=== PATIENT | male | born 1985 | race Caucasian/White ===

== ENCOUNTER 2021-12-10 19:15 | Emergency (ER) | payer OTHER ==
--- NOTE | 2021-12-10 20:45 | NUR ---
PATIENT WAS CALLED TO BE TRIAGED BUT WAS NOT PRESENT IN THE WAITING ROOM OR OUTSIDE OF ER.
--- NOTE | 2021-12-10 21:00 | NUR ---
PATIENT WAS CALLED TO BE TRIAGED BUT WAS NOT PRESENT IN THE WAITING ROOM OR OUTSIDE OF ER.
--- NOTE | 2021-12-10 21:30 | NUR ---
PATIENT WAS CALLED TO BE TRIAGED BUT WAS NOT PRESENT. PATIENT WAS NOT TRIAGED OR SEEN BY [facility].
== END 2021-12-10 21:30 | disposition left against medical advice (07) ==
LOC: ER 19:33
DX: Z53.21 Procedure and treatment not carried out due to patient leaving prior to being seen by health care provider (principal)